=== PATIENT | female | born 1965 | race Caucasian/White ===

== ENCOUNTER 2021-12-18 08:41 | Emergency (ER) | payer BC, SELFPAY ==
--- NOTE | 2021-12-18 08:47 | PC.NURSE ---
pt and left without being seen because could not visit pt.
[2021-12-18 08:49] VITALS: BP 0/0; PULSE 0; RESP 0; TEMP -17.7; TEMP 0; O2SAT 0
--- NOTE | 2021-12-18 09:05 | ECG_ITS ---
APPROVED REPORT Exam: Resting ECG HR:61 bpm ECG Measurements Heart Rate 61 AXES DC 169 P 68 QRSd 88 QRS 51 QT 424 T 40 QTc 428 Conclusion SINUS RHYTHM Normal ECG UNCONFIRMED REPORT Electronically signed by : Roscoe Cruz MD 12/19/2021 08:39:06
== END 2021-12-18 08:50 | disposition left against medical advice (07) ==
LOC: ER 09:07
PROVIDERS: Emergency Provider Student in an Organized Health Care Education/Training Program
DX: Z53.21 Procedure and treatment not carried out due to patient leaving prior to being seen by health care provider (principal)
CPT/HCPCS: 93005; 99211

== ENCOUNTER 2021-12-18 08:54 | Emergency (ER) | payer BC, SELFPAY ==
[2021-12-18] VITALS (14 sets, daily range): BP systolic 108–151; BP diastolic 67–94; PULSE 56–81; RESP 12–17; TEMP 35.3–36.9; O2SAT 95–100; BMI 29.0
--- NOTE | 2021-12-18 09:14 | PC.NURSE ---
pts belongings taken out if room and given to her .
[2021-12-18 09:16] LABS: Basophils % 0.4 % (0.1-2.0); Eosinophils # 0.2 K/mm3 (0.0-0.4); Eosinophils % 2.2 % (0.1-12.0); Hematocrit 43.5 % (37.0-47.0); Hemoglobin 13.9 g/dL (12.2-16.2); Lymphocytes # 2.5 K/mm3 (0.7-4.5); Mean Corpuscular Hemoglobin 30.1 pg (27.0-31.2); Mean Platelet Volume 6.8 fl (7.4-10.4); Monocytes # 0.4 K/mm3 (0.1-1.0); Monocytes % 4.4 % (1.7-9.3); Neutrophils # 5.7 K/mm3 (1.8-7.8); Neutrophils % 65.1 % (37.0-80.0); Platelet Count 366 K/mm3 (142-424); Red Blood Count 4.63 M/mm3 (4.20-5.40); Red Cell Distribution Width 13.3 % (11.5-17.5); White Blood Count 8.8 K/mm3 (4.8-10.8)
[2021-12-18 09:19] LABS: Chloride 102 mmol/L (98-107)
[2021-12-18 09:20] LABS: Potassium 3.9 mmoL/L (3.5-5.1); Sodium 135 mmol/L (136-145)
[2021-12-18 09:21] LABS: Coronavirus 19, PCR Not Detected (NotDetected); Influenza A, PCR Not Detected (NotDetected); Influenza B, PCR Not Detected (NotDetected)
[2021-12-18 09:22] LABS: Alanine Aminotransferase 25 U/L (12-78); Alkaline Phosphatase 74 U/L (38-126); Anion Gap 9.9 mEq/L (5-15); Aspartate Amino Transferase 37 U/L (14-36); Blood Urea Nitrogen 17 mg/dl (7-17); Calcium 8.8 mg/dl (8.4-10.2); Carbon Dioxide 27 mmol/L (22.0-30.0); Creatinine Clearance Estimated 104 mL/min (50-200); Estimated Glomerular Filt Rate 75 ml/min (>60); GFR (African American) 90 ML/MIN (>60); Glucose 223 mg/dl (74-100); Lipase 88 U/L (23-300)
--- NOTE | 2021-12-18 09:22 | PC.NURSE ---
spoke with brian from poison control who recommended 6hr obs. stated bottom sander depression was main concern for obs.
[2021-12-18 09:23] LABS: Acetaminophen 11 ug/ml (10-30); Albumin Level 4.6 g/dl (3.5-5.0); Albumin/Globulin Ratio 1.5 (1.1-1.8); Total Protein,Serum 7.6 g/dl (6.3-8.2)
--- NOTE | 2021-12-18 09:36 | HMH.EDGENADL ---
ED Disposition Clinical Impression: Suicide attempt by drug ingestion Disposition: Xfer Psychiatric Hosp Condition on Discharge: Good Referrals: Provider,Referral, [Primary Care Provider] - - Critical Care Critical Care Time: No Attestation: On 12/18/21, the high probability of a clinically significant, sudden or life threatening deterioration of the following system(s) required my full and direct attention, intervention and personal management. The time I documented below is in addition to time spent performing reported procedures but includes the following listed in this critical care notation. Medical Decision Making - Temo Inquiry Pt receiving controlled substance: No Vital Signs: 12/18/21 09:10 12/18/21 09:26 12/18/21 09:30 Temperature Temperature Source Pulse Rate 71 75 Pulse Rate [Left Radial] 72 Respiratory Rate 14 12 13 Blood Pressure 134/87 151/94 H Blood Pressure [Right Arm] 144/94 H Blood Pressure Mean 113 Blood Pressure Mean [Right Arm] 110 02 Sat by Pulse Oximetry 97 96 100 Oxygen Delivery Method Nasal Cannula Nasal Cannula Nasal Cannula Oxygen Flow Rate (LPM) 2 2 2 12/18/21 10:00 12/18/21 10:20 12/18/21 10:30 Temperature 95.5 F L Temperature Source Rectal Pulse Rate 56 L 80 Pulse Rate [Left Radial] Respiratory Rate 12 12 Blood Pressure 127/77 118/77 Blood Pressure [Right Arm] Blood Pressure Mean 93 98 Blood Pressure Mean [Right Arm] 02 Sat by Pulse Oximetry 99 98 Oxygen Delivery Method Nasal Cannula Room Air Oxygen Flow Rate (LPM) 2 12/18/21 11:00 12/18/21 11:30 12/18/21 12:00 Temperature Temperature Source Pulse Rate 79 80 67 Pulse Rate [Left Radial] Respiratory Rate 12 12 13 Blood Pressure 127/76 108/67 L 131/90 Blood Pressure [Right Arm] Blood Pressure Mean 93 80 100 Blood Pressure Mean [Right Arm] 02 Sat by Pulse Oximetry 97 96 99 Oxygen Delivery Method Room Air Room Air Nasal Cannula Oxygen Flow Rate (LPM) 2 12/18/21 12:11 12/18/21 13:13 12/18/21 13:30 Temperature 98.5 F Temperature Source Oral Pulse Rate 81 78 Pulse Rate [Left Radial] Respiratory Rate 13 Blood Pressure 137/89 128/78 Blood Pressure [Right Arm] Blood Pressure Mean 103 94 Blood Pressure Mean [Right Arm] 02 Sat by Pulse Oximetry 99 95 Oxygen Delivery Method Room Air Room Air Oxygen Flow Rate (LPM) - Lab Data Lab Results 12/18/21 09:06: WBC 8.8, RBC 4.63, Hgb 13.9, Hct 43.5, MCV 94.0, MCH 30.1, MCHC 32.0, RDW 13.3, Plt Count 366, MPV 6.8 L, Neut % (Auto) 65.1, Lymph % (Auto) 28.0, [place] % (Auto) 4.4, Eos % (Auto) 2.2, Baso % (Auto) 0.4, Neut # (Auto) 5.7, Lymph # (Auto) 2.5, [place] # (Auto) 0.4, Eos # (Auto) 0.2, Baso # (Auto) 0.0 12/18/21 09:06: Sodium 135 L, Potassium 3.9, Chloride 102, Carbon Dioxide 27, Anion Gap 9.9, BUN 17, Creatinine 0.80, Estimated Creat Clear 104, Estimated GFR 75, Est GFR ( Amer) 90, Glucose 223 H, Calcium 8.8, Total Bilirubin 1.0, AST 37 H, ALT 25, Alkaline Phosphatase 74, Total Protein 7.6, Albumin 4.6, Globulin 3.0, Albumin/Globulin Ratio 1.5, Lipase 88, Salicylates < 1.0 L, Acetaminophen 11 12/18/21 09:06: Serum HCG, Qual Negative 12/18/21 09:06: Plasma/Serum Alcohol < 10 12/18/21 09:06: PT 10.3, INR 0.90 12/18/21 09:06: Acetaminophen 11 12/18/21 09:12: SARS-CoV-2 (PCR) Not detected, Influenza A Untype (PCR) Not detected, Influenza Type B (PCR) Not detected 12/18/21 09:25: Blood Type A Positive, Antibody Screen Negative 12/18/21 10:41: Urine Color Yellow, Urine Appearance Clear, Urine pH 5.5, Ur Specific [place] >= 1.030, Urine Protein Negative, Urine Glucose (UA) Negative, Urine Ketones Negative, Urine Blood Negative, Urine Nitrate Negative, Urine Bilirubin Negative, Urine Urobilinogen 0.2, Ur Leukocyte Esterase Negative, Urine RBC None, Urine WBC None, Ur Squamous Epith Cells Occasional, Urine Bacteria None 12/18/21 10:41: Urine Opiates Screen Positive H, Urine Methadone Screen Negativ
[2021-12-18 09:38] LABS: HCG Qualitative, Serum Negative (Negative)
[2021-12-18 09:39] LABS: Salicylate < 1.0 mg/dL (2.0-20.0)
[2021-12-18 09:46] LABS: Ethyl Alcohol < 10 mg/dl (0-10)
[2021-12-18 09:53] LABS: Prothrombin Time 10.3 seconds (10.1-12.5)
[2021-12-18 09:58] LABS: Acetaminophen 11 ug/ml (10-30)
--- NOTE | 2021-12-18 10:00 | PC.NURSE ---
Patient stated Im so sorry Patient's Don't be sorry yet, wait until something actually happens .
[2021-12-18 10:47] LABS: Microscopic, Urine URINE MICROSCOPIC (MICROSCOPIC)
[2021-12-18 10:55] LABS: Appearance,Urine CLEAR (Clear); Bilirubin,Urine Negative (Negative); Blood, Urine Negative (Negative); Color,Urine YELLOW (Yellow); Glucose,Urine (UA) Negative (Negative); Ketones,Urine Negative (Negative); Leukocyte Esterase,Urine Negative (Negative); Nitrate,Urine Negative (Negative); PH,Urine 5.5 (5.0-8.5); Protein,Urine Negative (Negative); Specific Gravity, Urine >= 1.030 (1.005-1.030); Urobilinogen,Urine 0.2 EU/dl (0.2)
--- NOTE | 2021-12-18 10:56 | PC.NURSE ---
Patient's don't do this again Patient I wont i don't have any more pills I feel like i had one chance...one parachute and I blew it
[2021-12-18 11:07] LABS: Benzodiazepines Screen,Urine Negative ng/ml (<200)
[2021-12-18 11:08] LABS: Amphetamine/Metha Screen,Urine Negative ng/ml (<1000)
[2021-12-18 11:09] LABS: Barbiturates Screen,Urine Negative ng/ml (<200); Cannabinoid Screen,Urine Negative ng/ml (<50)
[2021-12-18 11:10] LABS: Cocaine Screen,Urine Negative ng/ml (<300)
[2021-12-18 11:11] LABS: Methadone Screen,Urine Negative ng/ml (<300); Opiate Screen,Urine Positive ng/ml (<300)
[2021-12-18 11:12] LABS: Phencyclidine Screen,Urine Negative ng/ml (<25)
[2021-12-18 11:27] LABS: Squamous Epithelial Cell,Urine Occasional #/hpf (0-5)
--- NOTE | 2021-12-18 12:12 | PC.NURSE ---
heating warmer turned off at this time. aware of temperature
--- NOTE | 2021-12-18 12:15 | PC.NURSE ---
repeat tylenol level sent to lab
--- NOTE | 2021-12-18 12:18 | PC.NURSE ---
okayed pt to have phone on pt at this time and access to internet and social media. Pt has phone in hand and searching at this time
--- NOTE | 2021-12-18 12:24 | PC.NURSE ---
PT sitting up in bed eating, bp and oxygen sat monitor removed at this time to eat
--- NOTE | 2021-12-18 12:30 | PC.NURSE ---
c/o nausea, nurse aware
[2021-12-18 13:02] LABS: Acetaminophen < 10 ug/ml (10-30)
--- NOTE | 2021-12-18 13:53 | PC.NURSE ---
called dispatch for police escort to [facility]
== END 2021-12-18 14:17 ==
PROVIDERS: Emergency Provider Student in an Organized Health Care Education/Training Program
DX: T42.4X2A Poisoning by benzodiazepines, intentional self-harm, initial encounter (principal); T40.2X2A Poisoning by other opioids, intentional self-harm, initial encounter; Y92.019 Unspecified place in single-family (private) house as the place of occurrence of the external cause
CPT/HCPCS: 80053; 80305; 80329; 81001; 83690; 84703; 85025; 85610; 86850; 96365; 96366; 96367; 96375; 99284; 99285; C9803; J2405; U0003; U0005

== ENCOUNTER 2022-02-16 10:21 | Emergency (ER) | payer BC, SELFPAY ==
[2022-02-16 11:21] VITALS: BP 141/88; PULSE 77; RESP 18; TEMP 37; O2SAT 98; BMI 29.8
--- NOTE | 2022-02-16 11:44 | HMH.EDUTC ---
[facility] [place] Clinical Impression: Sinusitis Qualifiers: Sinusitis location: unspecified location Chronicity: unspecified Qualified Code(s): J32.9 - Chronic sinusitis, unspecified Disposition: Home, Self-Care Condition on Discharge: Good Instructions: Sinusitis, DI for Sinusitis Additional Instructions: *Monitor Temp, Over the counter Motrin or Tylenol as directed/as needed Tylenol every 4 hours and Motrin every 6 hours (as long as your family doctor has told you that you can take it) for fever or pain. and straight to ER if unable to lower temp less than 101.0 after medication given *Warm salt water gargles may help to soothe the throat *Throat Lozenges *Warm fluids like tea with honey may help to soothe the throat *Sleep elevated *Humidifier/Vaporizer Take medication as prescribed Follow up IMMEDIATELY for new or worsening symptoms or no Noticeable improvement over the next 48-72 hours. 911 for difficulty breathing or swallowing Prescriptions: Benzonatate [Benzonatate 100mg cap] 100 mg PO Q8HP PRN #30 cap PRN Reason: Cough Transmission Status: Pending to [facility] Amoxicillin/Potassium Clav [Amox-Clav 875-125 mg Tablet] 1 tab PO BID #20 tab [facility]: [facility] predniSONE [Deltasone 20mg tablet] 20 mg PO BID #10 tab Transmission Status: Pending to [facility] Referrals: Provider,Referral, MD [Primary Care Provider] - As needed Time of Disposition: 11:49 Medical Decision Making - Temo Inquiry Pt receiving controlled substance: No Temo was queried for this patient: No Vital Signs: 02/16/22 11:21 Temperature 98.6 F Temperature Source Oral Pulse Rate [Right Radial] 77 Respiratory Rate 18 Blood Pressure [Right Arm] 141/88 H Blood Pressure Mean [Right Arm] 105 Blood Pressure Source [Right Arm] Automatic Cuff Blood Pressure Position [Right Arm] Sitting 02 Sat by Pulse Oximetry 98 Oxygen Delivery Method Room Air Medical Decision Narrative: Patient states that she has taken augmentin and prednisone in the past without complications or reactions [facility] [place] - General Stated complaint: sore throat, cough Time Seen by Provider: 02/16/22 11:45 Mode of Arrival: Ambulatory Source of Information: Patient Limitations: No Limitations Description of Symptoms (Recalled from Triage Doc. by RN): C/O persistent cough x8 days HEENT Symptoms (Recalled from RN notes): No Resp Symptoms (Recalled from RN notes): Yes (cough) Skin Symptoms (Recalled from RN notes): No MS Symptoms (Recalled from RN notes): No Functional Status (Recalled from RN notes): n/a - History of Present Illness Provider Complaint: Patient states that she has been having sinus pain and pressure along with drianage in the back of her throat and cough for over a week like she gets with sinus infection States that today the pressure behind her eyes was worse so she came in to get checked - Related Data Previous Rx's Medication Instructions Recorded Amoxicillin/Potassium Clav 1 tab PO BID #20 tab 02/16/22 [Amox-Clav 875-125 mg Tablet] Benzonatate [Benzonatate 100mg 100 mg PO Q8HP PRN #30 cap 02/16/22 cap] predniSONE [Deltasone 20mg 20 mg PO BID #10 tab 02/16/22 tablet] Allergies Allergy/AdvReac Type Severity Reaction Status Date / Time No Known Allergies Allergy Verified 12/18/21 09:17 - Worker's Comp Is this a Worker's Comp case?: No [facility] History - Hepatitis A Screen Drug use history?: No High risk sexual behaviors?: No History of sexually transmitted infection?: No Currently employed?: No Childcare worker?: No Do you have indoor plumbing?: Yes Do you have electricity?: Yes Attestation statement:: This patient has been screened for Hepatitis A risk factors. I have reviewed the patient's past medical history: Yes ROS Obtained: Yes All systems reviewed & no additional complaints, Yes Systems reviewed as appropriate & no additional
[2022-02-16 11:55] VITALS: BP 141/88; PULSE 77; RESP 18; TEMP 37; O2SAT 98
== END 2022-02-16 11:55 | disposition home or self-care (01) ==
PROVIDERS: Emergency Provider Nurse Practitioner
DX: J32.9 Chronic sinusitis, unspecified (principal)
CPT/HCPCS: 99212; G0463

== ENCOUNTER → 2022-04-05 08:19 | Outpatient (CLI) | payer BC, SELFPAY ==
--- NOTE | 2022-04-05 08:21 | MM_ITS ---
PROCEDURE INFORMATION: Exam: MG Bilateral Screening 3D Mammography Exam date and time: 04/05/2022 8:21 AM Age: 56 years old Clinical indication: Screening examination TECHNIQUE: Imaging protocol: Bilateral Screening tomosynthesis and 2D mammography including computer-aided detection (CAD) when performed. COMPARISON: No relevant prior studies available. FINDINGS: MAMMOGRAPHY: Breast composition: There are scattered areas of fibroglandular density. Mass: None. Architectural distortion: None. Calcifications: No suspicious calcifications. Asymmetric density: None. Skin thickening: None. Axillary adenopathy: None. IMPRESSION: No mammographic evidence of malignancy. Annual screening is recommended unless otherwise clinically indicated. ASSESSMENT: BI-RADS Category 1: Negative
== END ==
PROVIDERS: PCP Family Medicine; Visit Provider Family Medicine
DX: Z12.31 Encounter for screening mammogram for malignant neoplasm of breast (principal)
CPT/HCPCS: 77063; 77067

== ENCOUNTER → 2022-04-08 09:09 | Outpatient (CLI) | payer BC, SELFPAY ==
--- NOTE | 2022-04-08 09:12 | XR_ITS ---
FINAL REPORT TECHNIQUE: Bone densitometry calculations of the right forearm and left hip were obtained. CLINICAL HISTORY: . post menopausal FINDINGS: Using the distal 3rd of the right radius, the bone mineral density of the spine is 0.707 g/cm2, corresponding to T-score of 0.2. Using the left hip, the bone mineral density of the femoral neck is 0.896 g/cm2, corresponding to a T-score of -0.4. IMPRESSION: Normal bone mineral density of the right forearm and left hip. Reviewed, Interpreted and Dictated by Bryan Hurst III, MD Transcribed by Karthik Cadena Authenticated and [facility]
== END ==
PROVIDERS: PCP Family Medicine; Visit Provider Family Medicine
DX: Z13.820 Encounter for screening for osteoporosis (principal); Z78.0 Asymptomatic menopausal state
CPT/HCPCS: 77080

== ENCOUNTER 2023-02-20 09:05 | Emergency (ER) | payer BC, SELFPAY ==
[2023-02-20 09:10] VITALS: BP 136/83; PULSE 69; RESP 20; TEMP 37; O2SAT 98; BMI 29.6
--- NOTE | 2023-02-20 09:13 | XR_ITS ---
FINAL REPORT CLINICAL HISTORY: PAIN LOW BACK FINDINGS: LUMBAR SPINE AP and lateral views were obtained. Postoperative changes of fusion are seen from L3 through L5. There are mild degenerative changes. There is no acute fracture or malalignment. Vertebrae are normal height. Prevertebral soft tissues are unremarkable. IMPRESSION: No acute bony abnormality. Reviewed, Interpreted and Dictated by Bryan Hurst III, MD Transcribed by Rand Redd Authenticated and [facility]
--- NOTE | 2023-02-20 09:38 | EXP.UTC ---
Discharge Plan Disposition Patient Disposition: Home, Self-Care Condition: Good Prescriptions Prescriptions: New cyclobenzaprine 10 mg tablet 10 mg PO TID PRN (Reason: muscle spasm) Qty: 9 0RF No Action quetiapine 25 mg tablet 25 mg PO DAILY Label Comments: Take 1 tablet by mouth every night for sleep prazosin 1 mg capsule 1 mg PO DAILY Label Comments: Take 1 capsule by mouth every night for nightmares fluoxetine 10 mg tablet 80 mg PO DAILY Label Comments: Take 80 mg by mouth once a day Referrals Follow up/Referrals: Brian Sandoval MD [Primary Care Provider] - See instructions Activity Restrictions/Add. Instructions Additional Instructions/Restrictions: *Ibuprofen una 6 hours with meal as needed for pain/inflammation *Remember you had a Toradol shot in the clinic today, which is similar to Motrin *Not additional anti-inflammatory like motrin, aleve, advil with the above amount of ibuprofen. You can still take Tylenol every 4 hours as needed if you need something else for pain *Ice 20 minutes every 2 hours for the first 48 hours after the initial injury followed by moist heat every 20 minutes 3-4 times a day to affected area *Muscle relaxer every 8 hours as needed for muscle spasms but remember, it WILL cause drowsiness You cannot take it and drive, operate machinery or care for small children. *Keep this area active, no movement leads to more stiffness, However take it easy and avoid heavy lifting pushing or pulling *Follow up with you family doctor if no improvement for further treatment Clinical Impressions Clinical Impression: Low back pain Qualifiers: Chronicity: unspecified Back pain laterality: right Sciatica presence: with sciatica Sciatica laterality: sciatica of right side Qualified Code(s): M54.41 - Lumbago with sciatica, right side Instructions Patient Instructions: DI for Low Back Pain, Methocarbamol Discharge ED Provider: Keena Guzman [facility] General Stated complaint: lower back pain, no accident Mode of Arrival: Ambulatory Source of Information: Patient Limitations: No Limitations Time Seen by Provider: 02/20/23 09:38 Description of Symptoms (Recalled from Triage Doc. by RN): Pt had back surgery in 2017. She states that she has been working hard and thinks pulled a muscle. She is having back pain where previous surgery is. She stated that in the morning has burning pain that travels down right leg and gets worse as the day goes on. HEENT Symptoms (Recalled from RN notes): Yes Resp Symptoms (Recalled from RN notes): No Skin Symptoms (Recalled from RN notes): No MS Symptoms (Recalled from RN notes): No Functional Status (Recalled from RN notes): n/a History of Present Illness Provider Complaint: Patient states that she had back surgery several years ago and she has been helping build a barn and working with her animals and has been bending and twisting alot States that she started having pain in her lower back more so on right side close to her surgical scar and goes down into her right leg States that she thinks she just pulled a muscle but was concerned where it was close to her surgery site she wanted to get checked Denies loss of control of bowel or bladder Denies falling denies known injury Related Data Home Medications Medication Instructions Recorded Confirmed fluoxetine 10 mg tablet 80 mg PO DAILY . 02/20/23 02/20/23 prazosin 1 mg capsule 1 mg PO DAILY . 02/20/23 02/20/23 quetiapine 25 mg tablet 25 mg PO DAILY daily 02/20/23 02/20/23 Previous Rx's Medication Instructions Recorded cyclobenzaprine 10 mg tablet 10 mg PO TID PRN muscle spasm #9 02/20/23 tabs Allergies Allergy/AdvReac Type Severity Reaction Status Date / Time No Known Allergies Allergy Verified 02/20/23 09:33 Worker's Comp Is this a Worker's Comp case?: No [facility] Disclaimer: The information contained in this section may have been updated after th
[2023-02-20 10:54] VITALS: BP 136/83; PULSE 69; RESP 20; TEMP 37; O2SAT 98
== END 2023-02-20 10:53 | disposition home or self-care (01) ==
PROVIDERS: Emergency Provider Nurse Practitioner; PCP Family Medicine
DX: M54.41 Lumbago with sciatica, right side (principal)
CPT/HCPCS: 72100; 96372; 99212; 99214; G0463

== ENCOUNTER 2023-03-01 07:14 | Observation (INO) | payer BC, SELFPAY ==
[2023-03-01] VITALS (21 sets, daily range): BP systolic 103–152; BP diastolic 55–82; PULSE 72–110; RESP 14–20; TEMP 36.7–37.8; O2SAT 90–98; BMI 29.0; BMI 28.8
--- NOTE | 2023-03-01 07:25 | PC.NURSE ---
[id number] dr umanzor at bedside
--- NOTE | 2023-03-01 07:31 | CT_ITS ---
FINAL REPORT TECHNIQUE: After the administration of oral and intravenous contrast, axial images were obtained through the abdomen and pelvis by computed tomography. The study was performed with techniques to keep radiation dose as low as reasonably achievable, (ALARA). Individual dose reduction techniques using automated exposure control or adjustment of mA and/or kV according to the patient's size were employed. CLINICAL HISTORY: RLQ abd pain COMPARISON: none FINDINGS: Abdomen: The lung bases are clear. The liver parenchyma is homogeneous. The gallbladder is present. The spleen, pancreas, adrenals and kidneys appear unremarkable. The aorta is normal in caliber. There is no free fluid or adenopathy. There is streak artifact from posterior fusion hardware bridging the lower lumbar spine. Posterior laminectomy defect is present. Pelvis: The appendix is markedly enlarged measuring up to 1.5 cm in diameter. Appendicolith is present. There is extensive surrounding inflammation and fluid, all consistent with acute appendicitis. The urinary bladder is unremarkable. There is no free fluid or adenopathy. The uterus is present. Calcified phleboliths are seen in the floor the pelvis. IMPRESSION: Marked changes of acute appendicitis. No abscess. Prompt surgical evaluation recommended. Reviewed, Interpreted and Dictated by Christian Mccallum MD Transcribed by Desi Goel Authenticated and [facility]
--- NOTE | 2023-03-01 07:31 | HMH.EDGENADL ---
Discharge Plan Disposition Patient Disposition: Admitted As Inpatient Chief Complaint: Abdominal Pain Clinical Impressions Clinical Impression: Appendicitis Discharge ED Provider: Tank Arteaga General Adult HPI <Tank Arteaga MD - Last Filed: 03/01/23 07:45> General Chief complaint: Abdominal Pain Stated complaint: abd pain, vomiting Time Seen by Provider: 03/01/23 07:31 History of Present Illness HPI narrative: Patient is a 57-year-old female with chronic low back pain status post surgical intervention who presents emergency department for evaluation of abdominal pain. Onset was acute, over the last 24 hours. Patient originally had bandlike abdominal pain across her lower abdomen that has migrated to her right lower quadrant. Patient still has her appendix. 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 Patient denies dysuria, there is decreased p.o. intake and urine output. No other acute complaints at this time. Related Data Home Medications Medication Instructions Recorded Confirmed fluoxetine 10 mg tablet 80 mg PO DAILY . 02/20/23 03/01/23 prazosin 1 mg capsule 1 mg PO DAILY . 02/20/23 03/01/23 quetiapine 25 mg tablet 25 mg PO DAILY daily 02/20/23 03/01/23 Previous Rx's Medication Instructions Recorded cyclobenzaprine 10 mg tablet 10 mg PO TID PRN muscle spasm #9 02/20/23 tabs Allergies Allergy/AdvReac Type Severity Reaction Status Date / Time No Known Allergies Allergy Verified 02/20/23 09:33 PFSH <Tank Arteaga MD - Last Filed: 03/01/23 07:45> PFS Disclaimer: The information contained in this section may have been updated after the patient was seen, as this information can be updated by other users. Surgical History (Updated 03/01/23 @ 07:59 by Isabel Zacarias RN) H/O hand surgery H/O: knee surgery History of back surgery Family History (Updated 03/01/23 @ 07:59 by Isabel Zacarias RN) Other No significant family history Social History (Updated 03/01/23 @ 07:59 by Isabel Zacarias RN) Smoking Status: Never smoker alcohol intake: never current occupational status: unemployed Travel in the last 8 weeks: None <Tank Arteaga MD - Last Filed: 03/01/23 07:45> ROS Obtained: Yes Systems reviewed as appropriate & no additional complaints except as documented Physical Exam <Tank Arteaga MD - Last Filed: 03/01/23 07:45> General General appearance: alert and in no apparent distress Head Head exam: atraumatic and normocephalic Eye Eye exam: Present PERRL and EOMI ENT ENT exam: Present mucous membranes moist Neck Neck exam: Present normal inspection Chest Chest inspection: Present normal inspection and symmetric chest wall rise Respiratory Respiratory exam: Present normal lung sounds bilaterally; Absent respiratory distress Cardiovascular Cardiovascular exam: Present regular rate and normal rhythm Abdominal Exam Abdominal exam: Present soft, tenderness (Significant tenderness right lower quadrant) and guarding (Voluntary) Extremities Exam Extremities exam: Present normal inspection Neurological Exam Neurological exam: Present alert and oriented X3 Psychiatric Psychiatric exam: Present normal affect Skin Skin exam: Present warm and dry Medical Decision Making <Tank Arteaga MD - Last Filed: 03/01/23 07:45> Temo Inquiry Pt receiving controlled substance: No Vital Signs: 03/01/23 07:15 03/01/23 07:54 03/01/23 08:00 Temperature 98.8 F Temperature Source Oral Pulse Rate 77 74 Pulse Rate [Radial] 82 Respiratory Rate 18 Blood Pressure 129/70 Blood Pressure [Left Arm] 141/70 H Blood Pressure Mean 93 Blood Pressure Mean [Left Arm] 93 Blood Pressure Source [Left Arm] Automatic Cuff Blood Pressure Position [Left Arm] Sitting 02 Sat by Pulse Oxim
[2023-03-01 07:36] LABS: Microscopic, Urine URINE MICROSCOPIC (MICROSCOPIC)
[2023-03-01 07:38] LABS: Appearance,Urine CLEAR (Clear); Bilirubin,Urine Negative (Negative); Blood, Urine TRACE-I (Negative); Color,Urine YELLOW (Yellow); Glucose,Urine (UA) Negative (Negative); Ketones,Urine Negative (Negative); Leukocyte Esterase,Urine Negative (Negative); Nitrate,Urine Negative (Negative); Protein,Urine Negative (Negative); Urobilinogen,Urine 0.2 EU/dl (0.2)
--- NOTE | 2023-03-01 07:43 | ECG_ITS ---
APPROVED REPORT Exam: Resting ECG HR:76 bpm ECG Measurements Heart Rate 76 AXES SC 162 P 73 QRSd 106 QRS 70 QT 398 T 50 QTc 428 Conclusion SINUS RHYTHM POSSIBLE LEFT ATRIAL ENLARGEMENT [-0.1mV P-WAVE IN V1/V2] INCOMPLETE RIGHT BUNDLE BRANCH BLOCK [90+ ms QRS DURATION, TERMINAL R IN V1/V2, 40+ ms S IN I/aVL/V4/V5/V6] BORDERLINE ECG UNCONFIRMED REPORT Electronically signed by : Roscoe Cruz MD 03/01/2023 21:19:50
--- NOTE | 2023-03-01 07:44 | PC.NURSE ---
Family at BS
[2023-03-01 07:46] LABS: Basophils % 0.2 % (0.1-2.0); Eosinophils # 0.1 K/mm3 (0.0-0.4); Eosinophils % 0.6 % (0.1-12.0); Hematocrit 43.3 % (37.0-47.0); Hemoglobin 13.9 g/dL (12.2-16.2); Lymphocytes # 1.2 K/mm3 (0.7-4.5); Lymphocytes % 6.9 % (10-50); Mean Corpuscular HGB Conc 32.1 g/dL (31.8-35.4); Mean Corpuscular Hemoglobin 29.5 pg (27.0-31.2); Mean Corpuscular Volume 91.7 fl (81-99); Mean Platelet Volume 7.1 fl (7.4-10.4); Monocytes # 1.4 K/mm3 (0.1-1.0); Monocytes % 7.6 % (1.7-9.3); Neutrophils # 15.4 K/mm3 (1.8-7.8); Neutrophils % 84.8 % (37.0-80.0); Platelet Count 347 K/mm3 (142-424); Red Blood Count 4.72 M/mm3 (4.20-5.40); Red Cell Distribution Width 14.7 % (11.5-17.5); White Blood Count 18.2 K/mm3 (4.8-10.8)
[2023-03-01 07:48] LABS: MANUAL DIFFERENTIAL MANUAL DIFFERENTIAL (MANUAL DIFF)
[2023-03-01 07:49] LABS: Bacteria,Urine 2+ /lpf
[2023-03-01 07:50] LABS: Chloride 93 mmol/L (98-107)
--- NOTE | 2023-03-01 07:50 | PC.NURSE ---
ROUNDED ON PT, PAIN IMPROVED
[2023-03-01 07:51] LABS: Potassium 3.9 mmoL/L (3.5-5.1); Sodium 133 mmol/L (136-145)
[2023-03-01 07:53] LABS: Alanine Aminotransferase 31 U/L (12-78); Alkaline Phosphatase 76 U/L (38-126); Anion Gap 16.9 mEq/L (5-15); Aspartate Amino Transferase 32 U/L (14-36); Blood Urea Nitrogen 15 mg/dl (7-17); Carbon Dioxide 27 mmol/L (22.0-30.0); Creatinine Clearance Estimated 117 mL/min (50-200); Estimated Glomerular Filt Rate 87 ml/min (>60); GFR (African American) 105 ML/MIN (>60); Lactic Acid 1.2 mmol/L (0.7-2.1); Lipase 47 U/L (23-300)
[2023-03-01 07:54] LABS: Albumin Level 4.5 g/dl (3.5-5.0); Albumin/Globulin Ratio 1.5 (1.1-1.8); Calcium 9.2 mg/dl (8.4-10.2); Glucose 165 mg/dl (74-100); Total Protein,Serum 7.5 g/dl (6.3-8.2)
[2023-03-01 07:55] LABS: Lymphocytes % 3 % (10-50); Monocytes % 8 % (2-9); Neutrophils % 89 % (42-76); Total Cells Counted 100
[2023-03-01 07:56] LABS: Platelet Estimate Normal; RBC Morphology Normal
--- NOTE | 2023-03-01 08:14 | PC.NURSE ---
PT TO CT AT THIS TIME
[2023-03-01 08:26] LABS: C-Reactive Protein 52.9 mg/L (0-4)
--- NOTE | 2023-03-01 08:28 | PC.NURSE ---
PT RETURNED FROM CT
--- NOTE | 2023-03-01 08:50 | PC.NURSE ---
Rounded on patient, pt is alseep on ED stretcher at this time; RR: 17. SO at BS, no other needs at this time. call button within reach
--- NOTE | 2023-03-01 08:51 | PC.NURSE ---
Radiologist speaking with Dr Camacho at this time
--- NOTE | 2023-03-01 08:51 | HMH.ITSTN ---
Called and spoke with DR. Camacho, relayed messaged from DR Mccallum in Reading room, Acute Appendicitis, prompt surgical evaluation. Report will be available shortly.
--- NOTE | 2023-03-01 08:54 | PC.NURSE ---
DR SAN AT BEDSIDE TO UPDATE PT ON POC
--- NOTE | 2023-03-01 08:57 | PC.NURSE ---
Paged Dr. Hurt, General Surgery
--- NOTE | 2023-03-01 09:03 | PC.NURSE ---
covid swab sent to lab
--- NOTE | 2023-03-01 09:04 | PC.NURSE ---
Dr. Camacho speaking with Dr. Hurt at this time
--- NOTE | 2023-03-01 09:05 | PC.NURSE ---
cm contacted about bed assignment
[2023-03-01 09:11] LABS: Coronavirus 19, PCR Not Detected (NotDetected); Influenza A, PCR Not Detected (NotDetected); Influenza B, PCR Not Detected (NotDetected)
--- NOTE | 2023-03-01 09:14 | HMH.PHAINT1 ---
Pharmacy Intervention Comments: MEDICATION RECONCILIATION COMPLETED ON PATIENT USING EXTERNAL FILL HISTORY FROM PHARMACY. -JAC MILLER, TRESAD
--- NOTE | 2023-03-01 09:54 | PC.NURSE ---
REPORT CALLED TO SAVANAH HOLDEN
--- NOTE | 2023-03-01 10:01 | PC.NURSE ---
ARRIVED BYW/C FROM ED
--- NOTE | 2023-03-01 10:20 | PC.NURSE ---
pt taken down to OR, gave iv abx to preop nurse.
--- NOTE | 2023-03-01 10:28 | EXP.GEN.HP ---
HPI HPI HPI: This is a 57-year-old female who presented to the emergency department for evaluation of acute-onset lower abdominal pain (mostly on the right). Please see HPI forwarded from emergency department evaluation below. Forwarded from emergency department evaluation: General Adult HPI <Tank Arteaga MD - Last Filed: 03/01/23 07:45> General Chief complaint: Abdominal Pain Stated complaint: abd pain, vomiting Time Seen by Provider: 03/01/23 07:31 History of Present Illness HPI narrative: Patient is a 57-year-old female with chronic low back pain status post surgical intervention who presents emergency department for evaluation of abdominal pain.? Onset was acute, over the last 24 hours.? Patient originally had bandlike abdominal pain across her lower abdomen that has migrated to her right lower quadrant.? Patient still has her appendix.? 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 Patient denies dysuria, there is decreased p.o. intake and urine output.? No other acute complaints at this time. PFSH PFS Disclaimer: The information contained in this section may have been updated after the patient was seen, as this information can be updated by other users. Surgical History (Updated 03/01/23 @ 07:59 by Isabel Zacarias RN) H/O hand surgery H/O: knee surgery History of back surgery Family History (Updated 03/01/23 @ 07:59 by Isabel Zacarias RN) No significant family history Social History (Updated 03/01/23 @ 07:59 by Isabel Zacarias RN) Smoking Status: Never smoker alcohol intake: never current occupational status: unemployed Travel in the last 8 weeks: None Meds Home Medications and Allergies Home Medications Medication Instructions Recorded Confirmed Type prazosin 1 mg capsule 1 mg PO HS NIGHTMARES 02/20/23 03/01/23 History cyclobenzaprine 10 mg tablet 10 mg PO TIDP PRN muscle spasm 03/01/23 03/01/23 History fluoxetine 40 mg capsule 80 mg PO DAILY MOOD 03/01/23 03/01/23 History loratadine 10 mg tablet (Allergy 10 mg PO DAILY Allergy symptoms 03/01/23 03/01/23 History Relief (loratadine)) quetiapine 50 mg tablet 50 mg PO HS MOOD 03/01/23 03/01/23 History New Prescriptions to Start Prescriptions: Allergies Allergy/AdvReac Type Severity Reaction Status Date / Time No Known Allergies Allergy Verified 02/20/23 09:33 Exam Data for Last 24 hours Vital signs and Labs for Last 24 Hours: Temp Pulse Resp BP Pulse Ox 100.1 F H 79 18 141/76 H 96 03/01/23 10:00 03/01/23 10:00 03/01/23 10:00 03/01/23 10:00 03/01/23 10:00 Laboratory Results - last 24 hr 03/01/23 07:27: Urine Color Yellow, Urine Appearance Clear, Urine pH 7.0, Ur Specific [place] 1.020, Urine Protein Negative, Urine Glucose (UA) Negative, Urine Ketones Negative, Urine Blood Trace-i, Urine Nitrate Negative, Urine Bilirubin Negative, Urine Urobilinogen 0.2, Ur Leukocyte Esterase Negative, Urine RBC 5-10, Urine WBC 3-5, Ur Squamous Epith Cells 3-5, Urine Bacteria 2+ 03/01/23 07:35: WBC 18.2 H, RBC 4.72, Hgb 13.9, Hct 43.3, MCV 91.7, MCH 29.5, MCHC 32.1, RDW 14.7, Plt Count 347, MPV 7.1 L, Neut % (Auto) 84.8 H, Lymph % (Auto) 6.9 L, [place] % (Auto) 7.6, Eos % (Auto) 0.6, Baso % (Auto) 0.2, Neut # (Auto) 15.4 H, Lymph # (Auto) 1.2, [place] # (Auto) 1.4 H, Eos # (Auto) 0.1, Baso # (Auto) 0.0, Total Counted 100, Neutrophils % (Manual) 89 H, Lymphocytes % (Manual) 3 L, Monocytes % (Manual) 8, Platelet Estimate Normal, RBC Morphology Normal 03/01/23 07:35: Sodium 133 L, Potassium 3.9, Chloride 93 L, Carbon Dioxide 27, Anion Gap 16.9 H, BUN 15, Creatinine 0.70, Estimated Creat Clear 117, Estimated GFR 87, Est GFR (Elizabeth
--- NOTE | 2023-03-01 11:41 | EXP.ANES.CKL ---
[facility] Disclaimer: The information contained in this section may have been updated after the patient was seen, as this information can be updated by other users. Surgical History H/O hand surgery H/O: knee surgery History of back surgery Family History Other No significant family history Social History Smoking Status: Never smoker alcohol intake: never substance use type: denies use current occupational status: unemployed Travel in the last 8 weeks: None [facility] Anesthesia Checklist Patient Identification Patient Identification: Arm Band and Verbal (Name & ) Structural Data Admitted From: Inpatient Planned Operative Procedure/s: Laparascopic Appendectomy Consent for Planned Operative Procedure(s) Verified: Yes Verified Documents: Surgical Consent NPO Status Verified Time NPO: 00:00 Chart Verification Results Verified: CBC and BMP Airway Assessment C-Spine Mobility Assessed: Yes TMJ Mobility Assessed: Yes Anesthesia Plan Anesthesia Risk discussed: Yes ASA Class: II Anesthesia Type: General
--- NOTE | 2023-03-01 12:27 | EXP.OP.NOTE ---
Date of procedure: 03/01/23 Pre-op Diagnosis:: Appendicitis Post-op Diagnosis:: Necrotic/suppurative appendicitis Procedure performed:: Laparoscopic appendectomy Surgeon:: Negrito Hurt MD Anesthesia: GETA Estimated blood loss (mL): 15 Operative findings:: Appendiceal stump viable Mid/distal appendix necrotic with overlying suppurative changes Appendix densely adhesed to colonic wall margin and small bowel Operative note:: After informed consent was obtained the patient was taken to the operating room and placed in the supine position. General anesthesia was induced and her abdomen was prepped and draped in a sterile fashion. After infiltration with local anesthetic a supraumbilical incision was made. A Veress needle was placed in position. The abdomen was insufflated. Under direct visualization a 5 mm trocar was placed in the suprapubic position and an additional 5 mm trocar was placed in the left lower quadrant. The appendix was noted to be densely adhesed to the colonic wall margin and small bowel. The mid/distal appendix was necrotic with overlying suppurative changes. A window was made in the mesoappendix at the appendiceal base. An Endopath 45 stapling device was utilized to transect the appendix at its base. Harmonic sebastien were then utilized to take the mesoappendix as blunt dissection was used to separate the necrotic appendix from surrounding adhesed tissue. No obvious injury to the small bowel or colon was noted. Once the mesoappendix was transected, the appendix was placed in a retrieval bag and removed through the supraumbilical trocar site. The right lower quadrant and pelvis were thoroughly irrigated. No pockets of purulence, active bleeding, or other signs of injury were noted. Pneumoperitoneum was released as the trocars were removed. All wounds were irrigated. Fascia at the supraumbilical trocar site was reapproximated with interrupted 0 Ethibond. The umbilical incision was then closed with interrupted 4-0 Monocryl in a mattress fashion to facilitate hemostasis. Skin at the 5 mm trocar sites was reapproximated with interrupted 4-0 Monocryl in an interrupted subcuticular fashion. Dressings were applied and the patient was transferred to recovery in stable condition. Condition: stable Disposition: PACU Specimens:: Appendix Complications:: No immediate
--- NOTE | 2023-03-01 12:40 | EXP.ANES.I ---
[facility] Anesthesia Record Part I Anesthesia Record I Intake, IV Amount: 1,100 Estimated blood loss (mL): 10 Urine output (mL): 0 Blood Pressure: 122/66 SaO2: 94 Pulse Rate: 99 Respiratory Rate: 14 Temperature: 98.1 F Patient is:: Drowsy and Nasal O2 Stable to PACU at:: 12:38
[2023-03-01 13:01] LABS: Microscopic,Cath URINE MICROSCOPIC (MICROSCOPIC)
[2023-03-01 13:06] LABS: Appearance,Urine/Cath CLEAR (Clear); Bilirubin,Cath Negative (Negative); Blood, Urine/Cath TRACE-I (Negative); Color,Urine/Cath YELLOW (Yellow); Glucose,Urine/Cath (UA) Negative (Negative); Ketones,Urine/Cath Negative (Negative); Leukocyte Esterase,Cath Negative (Negative); Nitrate,Cath Negative (Negative); PH,Urine/Cath 7.5 (5.0-8.5); Protein,Urine/Cath Negative (Negative); Urobilinogen,Cath 0.2 EU/dl (0.2)
[2023-03-01 13:29] LABS: Bacteria,Urine/Cath TRACE /lpf; RBC,Urine/Cath Occasional # /hpf (0-3); Squamous Epithelial Ur./Cath Occasional #/hpf (0-5)
--- NOTE | 2023-03-01 18:10 | PC.NURSE ---
pt has done well since surgery. vss, pt has walked around unit multiple times. only c/o pt has is sore throat and drainage from allergies . 3 incisions to abd, with small dsg, cdi. pt has 2 small scraps on nose and forehead, pt states she done it a few days ago at home hanging a bird feeder. at bedside. no wuestions or concerns at this time. pt educated to splint abd when coughing/sneezing
[2023-03-02] VITALS: BP 105/61; PULSE 76; RESP 16; TEMP 37.6; O2SAT 90
[2023-03-02 04:00] VITALS: BP 109/57; PULSE 72; RESP 18; TEMP 37.1; O2SAT 91; BMI 29.2
--- NOTE | 2023-03-02 06:40 | EXP.SURG.PN ---
Subjective Patient reports: no new complaints and feels better Exam Data for Last 24 hours Vital signs and Labs for Last 24 Hours: Temp Pulse Resp BP Pulse Ox 98.8 F 72 18 109/57 L 91 L 03/02/23 04:00 03/02/23 04:00 03/02/23 04:00 03/02/23 04:00 03/02/23 04:00 Laboratory Results - last 24 hr 03/01/23 07:27: Urine Color Yellow, Urine Appearance Clear, Urine pH 7.0, Ur Specific [place] 1.020, Urine Protein Negative, Urine Glucose (UA) Negative, Urine Ketones Negative, Urine Blood Trace-i, Urine Nitrate Negative, Urine Bilirubin Negative, Urine Urobilinogen 0.2, Ur Leukocyte Esterase Negative, Urine RBC 5-10, Urine WBC 3-5, Ur Squamous Epith Cells 3-5, Urine Bacteria 2+ 03/01/23 07:35: WBC 18.2 H, RBC 4.72, Hgb 13.9, Hct 43.3, MCV 91.7, MCH 29.5, MCHC 32.1, RDW 14.7, Plt Count 347, MPV 7.1 L, Neut % (Auto) 84.8 H, Lymph % (Auto) 6.9 L, [place] % (Auto) 7.6, Eos % (Auto) 0.6, Baso % (Auto) 0.2, Neut # (Auto) 15.4 H, Lymph # (Auto) 1.2, [place] # (Auto) 1.4 H, Eos # (Auto) 0.1, Baso # (Auto) 0.0, Total Counted 100, Neutrophils % (Manual) 89 H, Lymphocytes % (Manual) 3 L, Monocytes % (Manual) 8, Platelet Estimate Normal, RBC Morphology Normal 03/01/23 07:35: Sodium 133 L, Potassium 3.9, Chloride 93 L, Carbon Dioxide 27, Anion Gap 16.9 H, BUN 15, Creatinine 0.70, Estimated Creat Clear 117, Estimated GFR 87, Est GFR ( Amer) 105, Glucose 165 H, Calcium 9.2, Total Bilirubin 2.0 H, AST 32, ALT 31, Alkaline Phosphatase 76, Total Protein 7.5, Albumin 4.5, Globulin 3.0, Albumin/Globulin Ratio 1.5 03/01/23 07:35: Lactate 1.2 03/01/23 07:35: C-Reactive Protein 52.9 H, Lipase 47 03/01/23 09:01: SARS-CoV-2 (PCR) Not detected, Influenza A Untype (PCR) Not detected, Influenza Type B (PCR) Not detected 03/01/23 09:13: Blood Type A Positive, Antibody Screen Negative 03/01/23 11:05: Urine Color Yellow, Urine Appearance Clear, Urine pH 7.5, Ur Specific [place] 1.010, Urine Protein Negative, Urine Glucose (UA) Negative, Urine Ketones Negative, Urine Blood Trace-i, Urine Nitrate Negative, Urine Bilirubin Negative, Urine Urobilinogen 0.2, Ur Leukocyte Esterase Negative, Urine RBC Occasional, Urine WBC None, Ur Squamous Epith Cells Occasional, Urine Bacteria Trace I & O for Last 24 hours: Intake & Output 02/27/23 02/28/23 03/01/23 03/02/23 11:59 11:59 11:59 11:59 Intake Total 1510 / 1510 Output Total 0 / 0 0 / 0 Balance 0 / 0 1510 / 1510 Weight 178 lb 6.4 oz 182 lb Constitutional Constitutional: no acute distress *Routine Respiratory Exam Respiratory: Absent respiratory distress *Routine Cardiovascular Exam Cardiovascular: Absent tachycardia *Routine Abdominal Exam Abdominal: Present soft Comments: Appropriate post-operative tenderness Progress Note: A&P Assessment and plan (1) Appendicitis: Problem details: Necrotic/suppurative appendicitis Status: Acute Assessment and plan: Overall, doing well status post laparoscopic appendectomy. Follow-up AM labs Complete short-course of antibiotics Possible discharge home later today
[2023-03-02 07:01] LABS: Basophils % 0.2 % (0.1-2.0); Eosinophils # 0.1 K/mm3 (0.0-0.4); Lymphocytes # 1.7 K/mm3 (0.7-4.5); Monocytes # 0.7 K/mm3 (0.1-1.0)
[2023-03-02 07:26] LABS: Eosinophils % 0.6 % (0.1-12.0); Hematocrit 33.8 % (37.0-47.0); Hemoglobin 10.8 g/dL (12.2-16.2); Lymphocytes % 17.3 % (10-50); Mean Corpuscular Volume 93.6 fl (81-99); Mean Platelet Volume 6.4 fl (7.4-10.4); Monocytes % 7.5 % (1.7-9.3); Neutrophils # 7.1 K/mm3 (1.8-7.8); Neutrophils % 74.3 % (37.0-80.0); Platelet Count 241 K/mm3 (142-424); Red Blood Count 3.61 M/mm3 (4.20-5.40); Red Cell Distribution Width 14.6 % (11.5-17.5); White Blood Count 9.6 K/mm3 (4.8-10.8)
--- NOTE | 2023-03-02 07:46 | EXP.ANES.II ---
[facility] Anesthesia Record Part II Anesthesia Record Part II Discharge Time: 13:08 Destination: Second Floor PACU nurse assessment reviewed?: Yes Patient Condition:: Good Anesthesia Complications:: None Swallowing reflex intact?: Yes Cyanosis?: No Blood Pressure: 134/70 Pulse Rate: 95 Temperature: 98.1 F Mental Status: Alert & Oriented Pain level:: 0 Nausea and/or vomitting:: None Intake, IV Amount: 0
[2023-03-02 07:47] VITALS: BP 134/70; PULSE 95; TEMP 36.7
[2023-03-02 08:00] VITALS: BP 106/63; PULSE 71; RESP 17; TEMP 37.1; O2SAT 95
--- NOTE | 2023-03-02 10:51 | EXP.DC.SUM ---
General Admission date:: 03/01/23 Discharge date: 03/02/23 HPI HPI HPI: This is a 57-year-old female who presented to the emergency department for evaluation of acute-onset lower abdominal pain (mostly on the right). Please see HPI forwarded from emergency department evaluation below. Forwarded from emergency department evaluation: General Adult HPI <Tank Arteaga MD - Last Filed: 03/01/23 07:45> General Chief complaint: Abdominal Pain Stated complaint: abd pain, vomiting Time Seen by Provider: 03/01/23 07:31 History of Present Illness HPI narrative: Patient is a 57-year-old female with chronic low back pain status post surgical intervention who presents emergency department for evaluation of abdominal pain.? Onset was acute, over the last 24 hours.? Patient originally had bandlike abdominal pain across her lower abdomen that has migrated to her right lower quadrant.? Patient still has her appendix.? 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 Patient denies dysuria, there is decreased p.o. intake and urine output.? No other acute complaints at this time. Hospital Course Hospital Course Hospital Course: The patient underwent laparoscopic appendectomy. Please see operative report for detail. She did have necrotic/suppurative appendicitis. She convalesced well and was deemed appropriate for discharge on the afternoon of postoperative day 1. She was maintained on antibiotics during her stay and was discharged with a short course of Augmentin secondary to intraoperative findings. Condition at discharge: At the time of discharge patient was afebrile with stable normal vital signs. She was ambulating without difficulty and tolerating advancement of her diet. Exam Data for Last 24 hours Vital signs and Labs for Last 24 Hours: Temp Pulse Resp BP Pulse Ox 98.7 F 71 17 106/63 L 95 03/02/23 08:00 03/02/23 08:00 03/02/23 08:00 03/02/23 08:00 03/02/23 08:00 Laboratory Results - last 24 hr 03/01/23 11:05: Urine Color Yellow, Urine Appearance Clear, Urine pH 7.5, Ur Specific [place] 1.010, Urine Protein Negative, Urine Glucose (UA) Negative, Urine Ketones Negative, Urine Blood Trace-i, Urine Nitrate Negative, Urine Bilirubin Negative, Urine Urobilinogen 0.2, Ur Leukocyte Esterase Negative, Urine RBC Occasional, Urine WBC None, Ur Squamous Epith Cells Occasional, Urine Bacteria Trace 03/02/23 06:26: WBC 9.6 D, RBC 3.61 L, Hgb 10.8 L D, Hct 33.8 L, MCV 93.6, MCH 30.0, MCHC 32.0, RDW 14.6, Plt Count 241 D, MPV 6.4 L, Neut % (Auto) 74.3, Lymph % (Auto) 17.3, [place] % (Auto) 7.5, Eos % (Auto) 0.6, Baso % (Auto) 0.2, Neut # (Auto) 7.1, Lymph # (Auto) 1.7, [place] # (Auto) 0.7, Eos # (Auto) 0.1, Baso # (Auto) 0.0 I & O for Last 24 hours: Intake & Output 02/27/23 02/28/23 03/01/23 03/02/23 11:59 11:59 11:59 11:59 Intake Total 2109 Output Total 0 / 0 0 / 0 Balance 0 / 0 2109 Weight 178 lb 6.4 oz 182 lb Microbiology Reports for the Last 24 Hours: Microbiology 03/01/23 07:27 Urine,Clean Catch Urine Culture - Preliminary Constitutional Constitutional: no acute distress *Routine HEENT Exam Head: Present normocephalic Eye: Present EOMI ENT: Present mucous membranes moist *Routine Neck Exam Neck: Present full ROM Routine Chest/Breast/Axilla Exam Chest wall: Absent tenderness *Routine Respiratory Exam Respiratory: Absent respiratory distress *Routine Cardiovascular Exam Cardiovascular: Absent tachycardia *Routine Abdominal Exam Abdominal: Present soft and tenderness *Routine Rectal Exam Patient deferred: visual exam and digital exam *Routine Exam Patient deferred: external ex
--- NOTE | 2023-03-02 11:07 | HMH.PHAINT1 ---
Pharmacy Intervention Comments: DISCHARGE MEDICATION COUNSELING PROVIDED. DISCUSSED THE FOLLOWING NEW MEDICATIONS: -AUGMENTIN (FOR INFECTION, THREE TIMES DAILY, TAKE WITH FOOD, MAY CAUSE N/V/D) -HYDROCODONE/APAP (FOR PAIN, IF NOT IN PAIN DONT HAVE TO TAKE, MAY CAUSE NAUSEA AND CONSTIPATION, MAY CONSIDER TAKING WITH FOOD, MAY CAUSE SEDATION). PATIENT VERBALIZED NO QUESTIONS AT THIS TIME.
--- NOTE | 2023-03-03 11:10 | CARE MANAGER ---
Contacted patient related to hospital discharge. Patient states she is feeling better. She has her new prescriptions and is aware of her follow up appointment. SAVANAH Linton
== END 2023-03-02 12:44 | disposition home or self-care (01) ==
LOC: ER 07:25 → 2ND 09:10
PROVIDERS: Emergency Medicine; Admitting Provider Surgery; Emergency Provider Emergency Medicine; PCP Family Medicine; Visit Provider Surgery
PROC: 0DTJ4ZZ Resection of Appendix, Percutaneous Endoscopic Approach (ICD-10-PCS; CPT 44970; principal; 2023-03-01 11:00)
DX: K35.890 Other acute appendicitis without perforation or gangrene (principal); Z20.822 Contact with and (suspected) exposure to COVID-19; Z79.899 Other long term (current) drug therapy
CPT/HCPCS: 44970; 36415; 74177; 80053; 81001; 83605; 83690; 85007; 85025; 86140; 86850; 87086; 87088; 87186; 93005; 99285; C9803; G0378; J0696; J2405; J2543; Q9967; U0003; U0005

== ENCOUNTER 2023-05-25 08:29 | Emergency (ER) | payer BC, SELFPAY ==
[2023-05-25 08:35] VITALS: BP 125/69; PULSE 70; RESP 18; TEMP 36.8; O2SAT 97; BMI 31.4
--- NOTE | 2023-05-25 08:47 | EXP.UTC ---
Discharge Plan Disposition Patient Disposition: Home, Self-Care Condition: Good Prescriptions Prescriptions: New cyclobenzaprine 10 mg tablet 10 mg PO TID PRN (Reason: muscle spasm) Qty: 30 0RF ibuprofen 800 mg tablet 800 mg PO TID PRN (Reason: pain) Qty: 30 0RF methylprednisolone [Medrol (Bret)] 4 mg tablets,dose pack 4 mg PO DIRECTED 6 Days Qty: 21 0RF Rx Instructions: 4 mg orally ;Medrol dose taper bret No Action fluoxetine 40 mg capsule 80 mg PO DAILY quetiapine 50 mg tablet 50 mg PO HS Patient Comments: TAKE 1 TABLET BY MOUTH AT BEDTIME cyclobenzaprine 10 mg tablet 10 mg PO TIDP PRN (Reason: muscle spasms) Referrals Follow up/Referrals: Brian Sandoval MD [Primary Care Provider] - See instructions Clinical Impressions Clinical Impression: Sciatica Sciatic nerve pain Qualifiers: Laterality: left Qualified Code(s): M54.32 - Sciatica, left side Instructions Patient Instructions: DI for Sciatica, DI for Chronic Pain -- Adult, DI for Back Pain With Sciatica Discharge ED Provider: Janell Mancera [facility] General Stated complaint: [id number] back pain Mode of Arrival: Ambulatory Source of Information: Patient Limitations: No Limitations Time Seen by Provider: 05/25/23 08:39 Description of Symptoms (Recalled from Triage Doc. by RN): PATIENT C/O LOWER BACK PAIN X 2 DAYS HEENT Symptoms (Recalled from RN notes): No Resp Symptoms (Recalled from RN notes): No Skin Symptoms (Recalled from RN notes): No MS Symptoms (Recalled from RN notes): Yes Functional Status (Recalled from RN notes): WNL History of Present Illness Provider Complaint: Pt relates that she was getting into the tub yesterday and twisted her back causing pain in her left buttock area. She states that she had some left over muscle relaxer and took that and it helped but she does not have anymore of those left. She reports that she has had back surgery in the past. Related Data Home Medications Medication Instructions Recorded Confirmed cyclobenzaprine 10 mg tablet 10 mg PO TIDP PRN muscle spasms 03/01/23 05/25/23 fluoxetine 40 mg capsule 80 mg PO DAILY mood 03/01/23 05/25/23 quetiapine 50 mg tablet 50 mg PO HS mood/sleep 03/01/23 05/25/23 Previous Rx's Medication Instructions Recorded cyclobenzaprine 10 mg tablet 10 mg PO TID PRN muscle spasm #30 05/25/23 tabs ibuprofen 800 mg tablet 800 mg PO TID PRN pain #30 tabs 05/25/23 methylprednisolone 4 mg tablets in 4 mg PO DIRECTED 6 days #21 tabs 05/25/23 a dose pack (Medrol (Bret)) Allergies Allergy/AdvReac Type Severity Reaction Status Date / Time No Known Allergies Allergy Verified 03/08/23 13:44 Worker's Comp Is this a Worker's Comp case?: No [facility] Disclaimer: The information contained in this section may have been updated after the patient was seen, as this information can be updated by other users. Medical History (Updated 05/25/23 @ 08:57 by Maryan Catherine RN) Patient left without being seen Sinusitis Suicide attempt by drug ingestion Surgical History (Updated 03/08/23 @ 13:56 by Negrito Hurt MD) Appendicitis H/O hand surgery H/O: knee surgery History of back surgery Family History Other No significant family history Social History Smoking Status: Never smoker alcohol intake: never substance use type: denies use current occupational status: unemployed Travel in the last 8 weeks: None ROS Obtained: Yes All systems reviewed & no additional complaints except as documented Constitutional Constitutional: Reports system reviewed and no additional complaints, except as documented Eyes Eyes: Reports system reviewed and no additional complaints, except as documented ENT Ears, Nose, Mouth, and Throat: Reports system reviewed and no additional complaints, except as
[2023-05-25 08:51] VITALS: BP 125/69; PULSE 70; RESP 18; TEMP 36.8; O2SAT 97
== END 2023-05-25 08:57 | disposition home or self-care (01) ==
PROVIDERS: Emergency Provider Nurse Practitioner Family; PCP Family Medicine
DX: M54.32 Sciatica, left side (principal); X50.1XXA Overexertion from prolonged static or awkward postures, initial encounter
CPT/HCPCS: 99212; 99214; G0463

== ENCOUNTER 2024-01-19 13:17 | Outpatient (CLI) | payer BC, SELFPAY ==
--- NOTE | 2024-01-19 13:25 | XR_ITS ---
FINAL REPORT CLINICAL HISTORY: LT SHOULDER PAIN hx of tendonitis, states chronic left shoulder pain FINDINGS: LEFT SHOULDER 3 views of the left shoulder were obtained. There is no acute fracture or dislocation. Mild degenerative changes are seen of the acromioclavicular joint. There are calcifications at the posterior aspect of the humeral head consistent with calcific tendinitis. Soft tissues are unremarkable. IMPRESSION: Degenerative changes and findings of calcific tendinitis. No acute bony abnormality. Reviewed, Interpreted and Dictated by Bryan Hurst III, MD Transcribed by Rand Redd Authenticated and . [facility]
== END 2024-01-19 23:59 ==
LOC: RAD 13:19
PROVIDERS: PCP Family Medicine; Visit Provider Family Medicine
DX: M25.512 Pain in left shoulder (principal)
CPT/HCPCS: 73030

== ENCOUNTER 2024-04-25 14:00 | Outpatient (RCR) | payer BC, SELFPAY ==
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
--- NOTE | 2024-04-23 14:39 | HMH.RHREAS ---
Rehab Reassessment Rehab OP Re-assessment Start: 03/27/24 08:26 Freq: Status: Active Protocol: Document 04/23/24 14:28 ALLA (Rec: 04/23/24 14:39 ALLA [id number]) E-signed By Andrae Chavarria OT QuickDASH Activities Please rate your ability to do the following activities in the last week by selecting the number below the appropriate response. 1. Open a tight or new jar. Moderate difficulty 2. Do heavy secretary to board of commissioners (e.g., wash Moderate difficulty aguero, floors). 3. Carry a shopping bag or briefcase. Mild difficulty 4. Wash your back. No difficulty 5. Use a knife to cut food. No difficulty 6. Recreational activities in which you Mild difficulty take some force or impact through your arm, shoulder, or hand (e.g., golf, hammering, tennis, etc.). 7. During the past week, to what extent Slightly has your arm, shoulder or hand problem interfered with your normal social activities with family, friends, neighbors or groups? 8. During the past week, were you Slightly limited limited in your work or other regular daily activites as a result of your arm, shoulder or hand problem? 9. Arm, shoulder or hand pain. Mild 10. Tingling (pins and needles) in your None arm, shoulder or hand. 11. During the past week, how much Moderate difficulty difficulty have you had sleeping because of the pain in your arm, shoulder or hand? Quick DASH 22 Rehab Re-assessment Subjective Subjective I do feel it is better in some ways. Objective Objective Notes Pt continues to be seen twice a week in order to address left shoulder deficits. Each session, pt engages in L shoulder AROM, AAROM, and strengthening exercises. PROM manual stretching is also provided in all planes at left shoulder; flexion, abduction, ER, and IR. Modalities are provided in order to decrease pain/inflammation. Assessment Progress Assessment Progressing as Expected Assessment Notes Pt is very consistent about attending therapy sessions. Pt reports she does feel her shoulder has improved since initial evaluation. However, pt is still experiencing pain reaching a 6-7/10 at worst. Usually this pain is at night and occures about 50% of the time when trying to sleep. She also complains of continued crunching and popping in the shoulder. Pt' s worst pain is when trying to complete internal rotation with shoulder abducted into 90 degrees. Pt's AROM has improved, but pt's internal rotation still remains very limitied. Therapist recommends pt return to PCP in order to discuss a plan since pt is continuing to have such a significant decline in IR. Current AROM L shoulder Flex: 170 degrees Abd: 170 degrees ER: 90 degrees IR: [address]-4 LT Goals Not Met see below Revised Goals ST LT-3 Quick Dash activities: 20 or below Plan Plan Continue with OT plan of care at this time. Return to pcp due to continued decline in AROM with internal rotation. Frequency of Therapy 2x's a week Duration of therapy 4 more weeks Time and Billing Re-Eval Time 10 Re-Eval Billing Units 1 PHYSICIAN CERTIFICATION: I certify the specified therapy services for Fifi Armenta are required, authorized, and reviewed every 30 days.
== END 2024-04-25 15:00 | disposition home or self-care (01) ==
LOC: OT 14:00
PROVIDERS: Visit Provider Family Medicine
DX: M25.512 Pain in left shoulder (principal)
CPT/HCPCS: 97010; 97014; 97110; 97140; 97164; 97166; G0283

== ENCOUNTER 2024-08-03 15:12 | Emergency (ER) | payer BC, SELFPAY ==
[2024-08-03 16:07] VITALS: BP 149/89; PULSE 79; RESP 20; TEMP 36.9; O2SAT 96; BMI 27.6
--- NOTE | 2024-08-03 16:41 | ED_ITS ---
Discharge Plan Disposition Patient Disposition: Home, Self-Care Condition: Good Prescriptions Prescriptions: New methylprednisolone [Medrol (Bret)] 4 mg tablets,dose pack See Rx Instructions .ROUTE .COMPLEX 6 Days Qty: 21 0RF Rx Instructions: 4 mg orally ;Medrol dose taper bret azithromycin 250 mg tablet See Rx Instructions .ROUTE .COMPLEX Qty: 6 0RF Rx Instructions: For 250 mg dose pack: take 500 mg today (day 1), then 250 mg for 4 days (days 2-5) No Action fluticasone propionate 50 mcg/actuation spray,suspension 50 mcg INTRANASAL DIRECTED Patient Comments: INSTILL ONE SPRAY IN EACH NOSTRIL EVERY DAY Referrals Follow up/Referrals: Brian Sandoval MD [Primary Care Provider] - See instructions Activity Restrictions/Add. Instructions Additional Instructions/Restrictions: keep follow up with ENT. Increase fluids and rest. Discontinue sinus lavage. Clinical Impressions Clinical Impression: Sinusitis, acute Qualifiers: Sinusitis location: pansinusitis Instructions Patient Instructions: DI for Sinusitis Print Language Print Language: Icelandic Discharge ED Provider: Janell Mancera [facility] [place] [facility] HPI General Stated complaint: weakness,congestion,blocking back of throat Mode of Arrival: Ambulatory Source of Information: Patient Time Seen by Provider: 08/03/24 16:41 Description of Symptoms (Recalled from Triage Doc. by RN): FATIGUE, COUGHING, SINUS PRESSURE AND DRAINAGE (YELLOW AND GREEN) X8 WEEKS HEENT Symptoms (Recalled from RN notes): Yes Resp Symptoms (Recalled from RN notes): Yes Skin Symptoms (Recalled from RN notes): No MS Symptoms (Recalled from RN notes): No Functional Status (Recalled from RN notes): WNL History of Present Illness Provider Complaint: Pt reports that she had Covid about two months ago and since has had sinus issues. She reports yellow green drainage, sinus swelling, and sore throat. Pt states that she does a sinus lavage daily. Related Data Home Medications ?Medication ?Instructions ?Recorded ?Confirmed fluticasone propionate 50 50 mcg intranasal DIRECTED 08/03/24 08/03/24 mcg/actuation nasal spray,suspension Previous Rx's ?Medication ?Instructions ?Recorded azithromycin 250 mg tablet See Rx Instructions PO .COMPLEX #6 08/03/24 tabs methylprednisolone 4 mg tablets in See Rx Instructions .Route 08/03/24 a dose pack (Medrol (Bret)) .COMPLEX 6 days #21 tabs Allergies Allergy/AdvReac Type Severity Reaction Status Date / Time No Known Allergies Allergy Verified 09/27/23 08:58 Worker's Comp Is this a Worker's Comp case?: No [facility] Disclaimer: The information contained in this section may have been updated after the patient was seen, as this information can be updated by other users. Medical History (Updated 08/03/24 @ 16:54 by Janell Mancera APRN) Sinusitis Suicide attempt by drug ingestion Patient left without being seen Surgical History (Updated 03/08/23 @ 13:56 by Negrito Hurt MD) Appendicitis History of back surgery H/O hand surgery H/O: knee surgery Family History Other No significant family history Social History Smoking Status: Never smoker alcohol intake: never substance use type: denies use current occupational status: unemployed Travel in the last 8 weeks: None ROS Obtained: Yes All systems reviewed & no additional complaints except as documented Constitutional Constitutional: Reports system reviewed and no additional complaints, except as documented, Reports headache(s) and Reports malaise Eyes Eyes: Reports system reviewed and no additional complaints, except as documented ENT Ears, Nose, Mouth, and Throat: Reports system reviewed and no additional complaints, except as documented, Reports headache(s), Reports nasal congestion, Reports nasal discharge, Reports odynophagia, Reports post nasal drip, Reports sinus pain and Reports sinus pressure Cardiovascular Cardiovascular: Reports system reviewed and no additional complaints, except as documented Respiratory Respiratory: Reports system reviewed and no additional complaints, except as documented and Reports non-productive cough Gastrointestinal Gastrointestingal: Reports system reviewed and no additional complaints, except as documented and odynophagia Genitourinary Female Genitourinary: Reports system reviewed and no additional complaints, except as documented Musculoskeletal Musculoskeletal: Reports system reviewed and no additional complaints, except as documented Integumentary/Breasts Skin/Breast: Reports system reviewed and no additional complaints, except as documented Neurologic Neurologic: Reports system reviewed and no additional complaints, except as documented and Reports headache(s) Endocrine Endocrine: Reports system reviewed and no additional complaints, except as documented Hematologic/Lymphatic Henatologic/Lymphatic: Reports system reviewed and no additional complaints, except as documented Allergic/Immunologic Allergic/Immunologic: Reports system reviewed and no additional complaints, except as documented Physical Exam General General appearance: alert Comment: ill appearing Head Head exam: atraumatic and normocephalic Eye Eye exam: Present normal appearance ENT ENT exam: Present mucous membranes moist Expanded ENT Exam External ear exam: Present normal external inspection Nose exam: Present sinus tenderness Nasal speculum exam: Bilateral: purulent discharge Mouth exam: Present normal external inspection Teeth exam: Present normal inspection Throat exam: Present normal inspection Neck Neck exam: Present normal inspection; Absent lymphadenopathy Chest Chest inspection: Present normal inspection and symmetric chest wall rise Respiratory Respiratory exam: Present normal lung sounds bilaterally Cardiovascular Cardiovascular exam: Present regular rate, normal rhythm and normal heart sounds Abdominal Exam Abdominal exam: Present soft and normal bowel sounds Extremities Exam Extremities exam: Present normal inspection Back Exam Back exam: Present normal inspection Neurological Exam Neurological exam: Present alert and oriented X3 Psychiatric Psychiatric exam: Present normal affect and normal mood Skin Skin exam: Present warm, dry and intact Lymphatic Lymphatic Findings: no adenopathy Medical Decision Making Medical Records Screening: Per USPSTF and CDC recommendations, given the prevalence of disease in our region, it is our hospital?s policy to screen for HIV and viral Hepatitis for all patients aged 18 and over and those with ongoing risk factors. Temo Inquiry Pt receiving controlled substance: No Temo was queried for this patient: No Vital Signs: 08/03/24 16:07 Temperature 98.4 F Temperature Source Oral Pulse Rate [Left Radial] 79 Respiratory Rate 20 Blood Pressure [Left Arm] 149/89 H Blood Pressure Mean [Left Arm] 109 02 Sat by Pulse Oximetry 96
[2024-08-03 16:56] VITALS: BP 149/89; PULSE 79; RESP 20; TEMP 36.9
== END 2024-08-03 16:57 | disposition home or self-care (01) ==
PROVIDERS: Emergency Provider Nurse Practitioner Family; PCP Family Medicine
DX: J01.90 Acute sinusitis, unspecified (principal)
CPT/HCPCS: 99213; G0381

== ENCOUNTER 2024-09-27 08:09 | Emergency (ER) | payer BC, SELFPAY ==
[2024-09-27 08:30] VITALS: BP 141/81; PULSE 79; RESP 18; TEMP 36.9; O2SAT 97; BMI 28.8
--- NOTE | 2024-09-27 08:30 | EXP.UTC ---
Discharge Plan Disposition Patient Disposition: Home, Self-Care Condition: Good Prescriptions Prescriptions: New azithromycin [Zithromax] 250 mg tablet 250 mg PO UD DOSE PK Qty: 6 0RF Rx Instructions: Take two (2) tablets today, then one (1) tablet days #2 thru #5 benzonatate 100 mg capsule 100 mg PO TIDP PRN (Reason: Cough) Qty: 30 0RF methylprednisolone 4 mg Tablets,Dose Pack 4 mg PO DIRECTED 6 Days Qty: 21 0RF Rx Instructions: Take 1 pack as directed for 6 days Referrals Follow up/Referrals: Brian Sandoval MD [Primary Care Provider] - See instructions Activity Restrictions/Add. Instructions Additional Instructions/Restrictions: Drink plenty of fluids. Take tylenol or ibuprofen for pain or fever. Take the medications as directed. Follow up with your regular doctor. GO TO THE ER FOR ANY WORSENING SYMPTOMS Don't start the oral steroids (medrol dose pack) until tomorrow since you had the shot here Clinical Impressions Clinical Impression: Right lower lobe pneumonia Instructions Patient Instructions: Pneumonia--Adult, Ceftriaxone Injection, Dexamethasone Injection Print Language Print Language: Togolese Discharge ED Provider: Charles Tucker [facility] [place] HPI General Stated complaint: congestion, cough Time Seen by Provider: 09/27/24 08:21 Related Data Previous Rx's ?Medication ?Instructions ?Recorded azithromycin 250 mg tablet 250 mg PO UD DOSE PK #6 tabs 09/27/24 (Zithromax) benzonatate 100 mg capsule 100 mg PO TIDP PRN Cough #30 caps 09/27/24 methylprednisolone 4 mg tablets in 4 mg PO DIRECTED 6 days #21 tabs 09/27/24 a dose pack Allergies Allergy/AdvReac Type Severity Reaction Status Date / Time No Known Allergies Allergy Verified 09/27/23 08:58 [facility] Disclaimer: The information contained in this section may have been updated after the patient was seen, as this information can be updated by other users. Medical History (Updated 09/27/24 @ 09:18 by Charles Tucker APRN) Sinusitis Suicide attempt by drug ingestion Patient left without being seen Surgical History (Updated 03/08/23 @ 13:56 by Negrito Hurt MD) Appendicitis History of back surgery H/O hand surgery H/O: knee surgery Family History Other No significant family history Social History Smoking Status: Never smoker alcohol intake: never substance use type: denies use current occupational status: unemployed ROS Obtained: Yes All systems reviewed & no additional complaints except as documented Constitutional Constitutional: Reports chills and Reports fever(s) Eyes Eyes: Denies eye discharge ENT Ears, Nose, Mouth, and Throat: Reports as per HPI Cardiovascular Cardiovascular: Denies chest pain Respiratory Respiratory: Denies chest congestion and Reports cough Gastrointestinal Gastrointestingal: Reports nausea; Denies abdominal pain, constipation, cramping, diarrhea or vomiting Musculoskeletal Musculoskeletal: Denies arthralgias Integumentary/Breasts Skin/Breast: Denies rash Neurologic Neurologic: Denies paresthesias Physical Exam General General appearance: alert and in no apparent distress Head Head exam: atraumatic, normocephalic and normal inspection Eye Eye exam: Present normal appearance, PERRL and EOMI ENT ENT exam: Present normal exam, normal oropharynx, mucous membranes moist, TM's normal bilaterally and normal external ear exam Neck Neck exam: Present normal inspection, full ROM and trachea midline; Absent meningismus or lymphadenopathy Chest Chest inspection: Present normal inspection and symmetric chest wall rise; Absent tenderness Respiratory Respiratory exam: Present normal lung sounds bilaterally; Absent respiratory distress Cardiovascular Cardiovascular exam: Present regular rate and normal rhythm; Absent JVD Abdominal Exam Abdominal exam: Present soft and normal bowel sounds; Absent distention, tenderness or guarding Extremities Exam Extremities exam: Present normal inspection, full ROM and normal capillary refill; Absent calf tenderness Back Exam Back exam: Present normal inspection; Absent tenderness Neurological Exam Neurological exam: Present alert and oriented X3 Psychiatric Psychiatric exam: Present normal affect and normal mood Skin Skin exam: Present warm, dry, intact and normal color Lymphatic Lymphatic Findings: no adenopathy Medical Decision Making Medical Records Medical records reviewed: No I reviewed the patient's medical records. Screening: Per USPSTF and CDC recommendations, given the prevalence of disease in our region, it is our hospital?s policy to screen for HIV and viral Hepatitis for all patients aged 18 and over and those with ongoing risk factors. Temo Inquiry Pt receiving controlled substance: No Lab Data Lab results reviewed: Yes I reviewed the patient's lab results.
--- NOTE | 2024-09-27 08:34 | XR_ITS ---
FINAL REPORT CLINICAL HISTORY: chest congestion FINDINGS: PA and lateral views of the chest are obtained. There is no prior exam for comparison. The cardiac and mediastinal silhouettes are within normal limits. The lungs are clear. There is no pleural effusion, pneumothorax, or acute osseous abnormality. IMPRESSION: No radiographic evidence of acute cardiac or pulmonary disease. Reviewed, Interpreted and Dictated by Penny Garza MD Transcribed by Anjelica Zuñiga Authenticated and [facility]
[2024-09-27 08:38] LABS: UTC Strep Screen (Rapid) Negative (Negative)
[2024-09-27] MEDS: DEXAMETHASONE 4MG/ML 1ML VIAL 8 MG IM (09:12)
[2024-09-27] MEDS: cefTRIAXone 1GM VIAL 1 GM IM (09:12)
[2024-09-27] MEDS: LIDOCAINE 1% 5ML PF VIAL IM (09:12)
[2024-09-27 09:26] VITALS: BP 141/81; PULSE 79; RESP 18; TEMP 36.9
[2024-09-27 09:35] LABS: Coronavirus 19, PCR Not Detected (NotDetected); Influenza A, PCR Not Detected (NotDetected); Influenza B, PCR Not Detected (NotDetected)
== END 2024-09-27 09:32 | disposition home or self-care (01) ==
PROVIDERS: Emergency Provider Nurse Practitioner Family; PCP Family Medicine
DX: J18.9 Pneumonia, unspecified organism (principal)
CPT/HCPCS: 71046; 87636; 87880; 96372; 99213; G0381; J0696; J1100

== ENCOUNTER 2024-10-25 07:18 | Outpatient (CLI) | payer BC, SELFPAY ==
--- NOTE | 2024-10-25 07:21 | CT_ITS ---
FINAL REPORT TECHNIQUE: Multiple axial CT sections were performed through the face without IV contrast. Coronal reconstruction images were performed. This study was performed with techniques to keep radiation doses as low as reasonably achievable (ALARA). Individualized dose reduction techniques using automated exposure control or adjustment of mA and/or kV according to the patient's size were employed. CLINICAL HISTORY: chronis sinusitis FINDINGS: There has been resection of the ostial medial units. There is minimal mucoperiosteal thickening in the maxillary sinuses bilaterally. No air-fluid levels are identified. The frontal sinuses, ethmoid air cells, and sphenoid sinuses are all well aerated. IMPRESSION: Chronic maxillary sinusitis bilaterally. Reviewed, Interpreted and Dictated by Christian Mccallum MD Transcribed by Sejal Cintron Authenticated and [facility]
== END 2024-10-25 23:59 | disposition home or self-care (01) ==
LOC: RAD 07:19
PROVIDERS: PCP Family Medicine; Visit Provider Nurse Practitioner
DX: J01.90 Acute sinusitis, unspecified (principal)
CPT/HCPCS: 70486